=== PATIENT | female | born 2000 | race Caucasian/White ===

== ENCOUNTER 2020-12-31 17:10 | Observation (INO) | payer OTHER ==
[2020-12-31] MEDS ORDERED: BABY ASPIRIN 81 MG CHEW PO ONE (17:38)
[2020-12-31] MEDS ORDERED: TORAdol 30 mg Injection IV ONE (17:38)
[2020-12-31] MEDS ORDERED: DUONEB 0.5-3 MG/3 ml Neb IH ONE ×2 (17:39→17:42)
[2020-12-31 17:42] LABS: Hematocrit 39.9 % (35-47); Hemoglobin 12.8 gm/dl (12.0-16.0); Mean Cell Volume 84.7 fl (78-100); Mean Corpuscular Hemoglobin 27.2 pg (26-32); Mean Corpuscular Hgb Concent. 32.1 g/dl (32-36); Mean Platelet Volume 10.9 fl (7.5-11.0); Platelet Count 585 K/mm3 (150-450); Red Blood Count 4.71 M/mm3 (4.1-5.4); Red Cell Distribution Width 16.4 % (11.5-14.0)
[2020-12-31] MEDS ORDERED: BABY ASPIRIN 81 MG CHEW ONE (17:45)
[2020-12-31] MEDS ORDERED: TORAdol 30 mg Injection ONE (17:45)
[2020-12-31 17:49] LABS: White Blood Count 26.3 K/mm3 (4.0-10.5)
[2020-12-31] MEDS ORDERED: Sodium Chloride 0.9% 1000 ML 1,000 ML IV STA (17:49)
[2020-12-31] MEDS ORDERED: Sodium Chloride 0.9% 1000 ML 1,000 ML ONE (17:50)
[2020-12-31 17:51] LABS: ALBUMIN 4.7 g/dL (3.5-5.0); ALKALINE PHOSPHATASE 59 U/L (38-126); ANION GAP 13.2 MEQ/L (5-15); BLOOD UREA NITROGEN 11 mg/dL (7-17); CHLORIDE 107 mmol/L (98-107); Calcium 10.4 mg/dL (8.4-10.2); Carbon Dioxide 23 mmol/L (22-30); Creatinine 1 0.58 mg/dL (0.52-1.04); EST GLOMERULAR FILTRATION RATE > 60.0 ML/MIN; Glucose 71 mg/dL (74-106); MAGNESIUM 2.1 mg/dL (1.6-2.3); Potassium 4.2 mmol/L (3.5-5.1); SGOT/AST 31 U/L (14-36); SGPT/ALT 23 U/L (0-35); SODIUM 138 mmol/L (137-145); Total Protein 8.2 g/dL (6.3-8.2)
--- NOTE | 2020-12-31 17:53 | ERPHSYRPT ---
- History of Present Illness Time Seen by Provider: 12/31/20 17:15 Source: patient Exam Limitations: no limitations Patient Subjective Stated Complaint: Pt states "It hurts under my right ribs when I breath. It has felt this way since sunday," Triage Nursing Assessment: Pt presented alert and oriented X 3, skin wpd pt ambulates with an upright steady gait, able to speak in clear full sentences pt tachypneic, holding her right side. Physician History: 20 years old female with history of tobacco abuse presented in the ER with 4 days history of right lower chest wall moderate intensity sharp pain with deep breathing, movements and associated increasing shortness of breath. Patient denies any fall trauma, fever or chills but has wet to dry cough. Denies any history of pulmonary embolism. Denies any left-sided pain. Timing/Duration: day(s) (4), gradual onset, worse Activities at Onset: rest Severity of Dyspnea-Max: moderate Severity of Dyspnea-Current: moderate Possible Cause: unknown cause Modifying Factors: Improves With: rest. Worsens With: deep breath, exertion Associated Symptoms: cough, chest pain/discomfort, muscle spasms hands, painful breathing, tightness Allergies/Adverse Reactions: No Known Drug Allergies Allergy (Verified 12/31/20 17:16) Home Medications: No Reportable Medications [No Reported Medications] 12/31/20 [History] Hx Tetanus, Diphtheria Vaccination/Date Given: No Hx Influenza Vaccination/Date Given: No Hx Pneumococcal Vaccination/Date Given: No Immunizations Up to Date: Yes Travel Risk - International Travel Have you traveled outside of the country in past 3 weeks: No - Coronavirus Screening Are you exhibiting any of the following symptoms?: No Close contact with a COVID-19 positive Pt in past 14-21 Days: No - Review of Systems Constitutional: Fatigue, Malaise Eyes: No Symptoms Ears, Nose, & Throat: No Symptoms Respiratory: Cough, Dyspnea, Dyspnea on Exertion ([place]) Cardiac: Chest Pain Abdominal/Gastrointestinal: No Symptoms Genitourinary Symptoms: No Symptoms Musculoskeletal: No Symptoms Skin: No Symptoms Neurological: No Symptoms Psychological: No Symptoms Endocrine: No Symptoms Hematologic/Lymphatic: No Symptoms Immunological/Allergic: No Symptoms - Past Medical History Pertinent Past Medical History: No - Past Surgical History Past Surgical History: No - Social History Smoking Status: Current every day smoker How long have you smoked: years Exposure to second hand smoke: Yes Drug Use: none Patient Lives Alone: No - Female History Hx Last Menstrual Period: 11/29/2020 Hx Now: No (possible) - Nursing Vital Signs Nursing Vital Signs: Initial Vital Signs Temperature 98.0 F 12/31/20 17:11 Pulse Rate 90 12/31/20 17:11 Respiratory Rate 26 H 12/31/20 17:11 Blood Pressure 163/87 12/31/20 17:11 O2 Sat by Pulse Oximetry 100 12/31/20 17:11 Pain Scale Pain Intensity 0 - Physical Exam General Appearance: no apparent distress, alert Eye Exam: PERRL/EOMI, eyes nml inspection Ears, Nose, Throat Exam: hearing grossly normal, normal ENT inspection, normal pharynx Neck Exam: normal inspection, non-tender, supple, full range of motion Respiratory Exam: chest tenderness (Right lower anterior chest wall. No crepitus), wheezing Cardiovascular/Chest Exam: normal heart sounds, regular rate/rhythm Abdominal/Gastrointestinal Exam: soft, No tenderness Extremity Exam: non-tender, normal range of motion Neurologic Exam: alert, oriented x 3, cooperative Skin Exam: normal color SpO2 Interpretation: normal SpO2: 100 O2 Delivery: Room Air - Course EKG Interpreted by Me: RATE ([id number]), Sinus Rhythm, NORMAL AXIS, NORMAL INTERVALS, NORMAL QRS Ordered Tests: Active Orders 24 hr Category Date Time Status Bedrest with BRP/BSC ROUTINE Activity 12/31/20 22:12 Active Code Status Order ROUTINE Care 12/31/20 22:12 Active IV Care Q6H Care 12/31/20 22:[address] in Observation ROUTINE Care 12/31/20 22:12 Active Barney Cochran ROUTINE Care 12/31/20 22:12 Active House Regular Diet Diet 12/31/20 Breakfast Active CHEST WITH CONTRAST [CT] Stat Exams 12/31/20 17:33 Completed BLOOD CULTURE Stat Lab 12/31/20 19:54 Received CBC Stat Lab 12/31/20 20:22 Completed CBC W DIFF AM.LAB Lab 01/01/21 04:00 Ordered CBC W DIFF Stat Lab 12/31/20 17:20 Completed CMP AM.LAB Lab 01/01/21 04:00 Ordered CMP Stat Lab 12/31/20 17:20 Completed CULTURE,URINE Stat Lab 12/31/20 19:05 Received HCG,QUALITATIVE URINE Stat Lab 12/31/20 17:20 Completed Lactic Acid Stat Lab 12/31/20 19:01 Completed MAGNESIUM Stat Lab 12/31/20 17:20 Completed Manual Differential NC Stat Lab 12/31/20 17:20 Completed TROPONIN Q3H Lab 12/31/20 17:41 Completed TROPONIN Q3H Lab 12/31/20 19:54 Completed TROPONIN Q3H Lab 01/01/21 02:45 Ordered TROPONIN Q3H Lab 01/01/21 05:45 Ordered UA W/RFX UR CULTURE Stat Lab 12/31/20 19:05 Completed Respiratory Therapy Assessment DAILY RT 12/31/20 17:57 Completed Transfer Order Routine Transfer 12/31/20 Completed Medication Summary Generic Name Dose Route Start Last Admin Trade Name Freq PRN Reason Stop Dose Admin Acetaminophen 650 mg 12/31/20 22:12 Tylenol 325 Mg PO 01/30/21 22:11 Q4H PRN PRN PAIN AND/OR FEVER Albuterol/Ipratropium 3 ml 01/01/21 07:00 Duoneb 0.5-3 Mg/3 Ml Neb IH 01/31/21 06:59 QIDRT DEVI Famotidine 20 mg 12/31/20 22:12 Pepcid 20 Mg Vial IV 01/30/21 22:11 Q12HT DEVI Levofloxacin/Dextrose 750 mg in 150 mls @ 100 mls/hr 01/01/21 10:00 Levofloxacin 750mg/150ml D5w IV 01/31/21 09:59 Q24H10 DEVI Ketorolac Tromethamine 30 mg 12/31/20 22:12 Toradol 30 Mg Injection IV 01/05/21 22:11 Q6H PRN PRN PAIN Ondansetron HCl 4 mg 12/31/20 22:12 Zofran 4 Mg/2 Ml Vial IV 01/30/21 22:11 Q6H PRN PRN NAUSEA/VOMITING Discontinued Medications Generic Name Dose Route Start Last Admin Trade Name Freq PRN Reason Stop Dose Admin Albuterol/Ipratropium 3 ml 12/31/20 17:39 12/31/20 17:45 Duoneb 0.5-3 Mg/3 Ml Neb IH 12/31/20 17:40 3 ml STAT ONE Administration Albuterol/Ipratropium Confirm 12/31/20 17:42 Duoneb 0.5-3 Mg/3 Ml Neb Administered 12/31/20 17:43 Dose 3 ml IH .STK-MED ONE Aspirin 324 mg 12/31/20 17:38 12/31/20 17:51 Baby Aspirin 81 Mg Chew PO 12/31/20 17:39 324 mg STAT ONE Administration Aspirin Confirm 12/31/20 17:45 Baby Aspirin 81 Mg Chew Administered 12/31/20 17:46 Dose 324 mg .ROUTE .STK-MED ONE Sodium Chloride 1,000 mls @ 999 mls/hr 12/31/20 17:49 12/31/20 18:58 Sodium Chloride 0.9% 1000 Ml IV 12/31/20 18:49 Infused .Q1H1M STA Infusion Sodium Chloride Confirm 12/31/20 17:50 Sodium Chloride 0.9% 1000 Ml Administered 12/31/20 17:51 Dose 1,000 mls @ ud .ROUTE .STK-MED ONE Levofloxacin/Dextrose 750 mg in 150 mls @ 100 mls/hr 12/31/20 20:26 12/31/20 20:48 Levofloxacin 750mg/150ml D5w IV 12/31/20 21:55 100 mls/hr STAT STA 100 mls/hr Administration Levofloxacin/Dextrose Confirm 12/31/20 20:47 Levofloxacin 750mg/150ml D5w Administered 12/31/20 20:48 Dose 750 mg in 150 mls @ ud IV .STK-MED ONE Ketorolac Tromethamine 30 mg 12/31/20 17:38 12/31/20 17:55 Toradol 30 Mg Injection IV 12/31/20 17:39 30 mg STAT ONE Administration Ketorolac Tromethamine Confirm 12/31/20 17:45 Toradol 30 Mg Injection Administered 12/31/20 17:46 Dose 30 mg .ROUTE .STK-MED ONE Lab/Rad Data: Laboratory Result Diagrams 12/31/20 20:22 12/31/20 17:20 Laboratory Results 12/31/20 12/31/20 12/31/20 Range/Units 20:41 20:22 19:54 WBC 25.3 H* (4.0-10.5) K/mm3 RBC 4.25 (4.1-5.4) M/mm3 Hgb 11.6 L (12.0-16.0) gm/dl Hct 36.3 (35-47) % MCV 85.4 (78-100) fl MCH 27.3 (26-32) pg MCHC 32.0 (32-36) g/dl RDW 16.4 H (11.5-14.0) % Plt Count 496 H (150-450) K/mm3 MPV 10.5 (7.5-11.0) fl Segmented Neutrophils (36.0-66.0) % Band Neutrophils (0.0-2.0) % Lymphocytes (Manual) (24-44) % Monocytes (Manual) (0.0-12.0) % Eosinophils (Manual) (0.00-3.0) % Basophils (Manual) (0.0-1.0) % Metamyelocytes % Platelet Estimate (NORMAL) RBC Morphology Sodium (137-145) mmol/L Potassium (3.5-5.1) mmol/L Chloride (98-107) mmol/L Carbon Dioxide (22-30) mmol/L Anion Gap (5-15) MEQ/L BUN (7-17) mg/dL Creatinine (0.52-1.04) mg/dL Estimated GFR ML/MIN Glucose (74-106) mg/dL Lactic Acid (0.4-2.0) Calcium (8.4-10.2) mg/dL Magnesium (1.6-2.3) mg/dL Total Bilirubin (0.2-1.3) mg/dL AST (14-36) U/L ALT (0-35) U/L Alkaline Phosphatase (38-126) U/L Troponin I < 0.012 (0.000-0.034) ng/mL Serum Total Protein (6.3-8.2) g/dL Albumin (3.5-5.0) g/dL Urine Color (YELLOW) Urine Appearance (CLEAR) Urine pH (5-6) Ur Specific Ensign (1.005-1.025) Urine Protein (Negative) Urine Ketones (NEGATIVE) Urine Blood (0-5) Kian/ul Urine Nitrite (NEGATIVE) Urine Bilirubin (NEGATIVE) Urine Urobilinogen (0-1) mg/dL Ur Leukocyte Esterase (NEGATIVE) Urine WBC (Auto) (0-5) /HPF Urine RBC (Auto) (0-2) /HPF U Epithel Cells (Auto) (FEW) /HPF Urine Bacteria (Auto) (NEGATIVE) /HPF Urine Mucus (Auto) (NEGATIVE) /HPF Urine Culture Reflexed (NO) Urine Glucose (NEGATIVE) mg/dL Urine HCG, Qual (Negative) SARS-CoV-2 (PCR) NEGATIVE (NEGATIVE) 12/31/20 12/31/20 12/31/20 Range/Units 19:05 19:01 17:41 WBC (4.0-10.5) K/mm3 RBC (4.1-5.4) M/mm3 Hgb (12.0-16.0) gm/dl Hct (35-47) % MCV (78-100) fl MCH (26-32) pg MCHC (32-36) g/dl RDW (11.5-14.0) % Plt Count (150-450) K/mm3 MPV (7.5-11.0) fl Segmented Neutrophils (36.0-66.0) % Band Neutrophils (0.0-2.0) % Lymphocytes (Manual) (24-44) % Monocytes (Manual) (0.0-12.0) % Eosinophils (Manual) (0.00-3.0) % Basophils (Manual) (0.0-1.0) % Metamyelocytes % Platelet Estimate (NORMAL) RBC Morphology Sodium (137-145) mmol/L Potassium (3.5-5.1) mmol/L Chloride (98-107) mmol/L Carbon Dioxide (22-30) mmol/L Anion Gap (5-15) MEQ/L BUN (7-17) mg/dL Creatinine (0.52-1.04) mg/dL Estimated GFR ML/MIN Glucose (74-106) mg/dL Lactic Acid 1.0 (0.4-2.0) Calcium (8.4-10.2) mg/dL Magnesium (1.6-2.3) mg/dL Total Bilirubin (0.2-1.3) mg/dL AST (14-36) U/L ALT (0-35) U/L Alkaline Phosphatase (38-126) U/L Troponin I < 0.012 (0.000-0.034) ng/mL Serum Total Protein (6.3-8.2) g/dL Albumin (3.5-5.0) g/dL Urine Color YELLOW (YELLOW) Urine Appearance SLIGHTLY CLOUDY (CLEAR) Urine pH 7.0 (5-6) Ur Specific Ensign 1.006 (1.005-1.025) Urine Protein NEGATIVE (Negative) Urine Ketones NEGATIVE (NEGATIVE) Urine Blood SMALL (0-5) Kian/ul Urine Nitrite NEGATIVE (NEGATIVE) Urine Bilirubin NEGATIVE (NEGATIVE) Urine Urobilinogen NEGATIVE (0-1) mg/dL Ur Leukocyte Esterase LARGE (NEGATIVE) Urine WBC (Auto) 26-50 (0-5) /HPF Urine RBC (Auto) 6-10 (0-2) /HPF U Epithel Cells (Auto) MODERATE (FEW) /HPF Urine Bacteria (Auto) FEW (NEGATIVE) /HPF Urine Mucus (Auto) SLIGHT (NEGATIVE) /HPF Urine Culture Reflexed YES (NO) Urine Glucose NEGATIVE (NEGATIVE) mg/dL Urine HCG, Qual (Negative) SARS-CoV-2 (PCR) (NEGATIVE) 12/31/20 12/31/20 12/31/20 Range/Units 17:20 17:20 17:20 WBC 26.3 H* (4.0-10.5) K/mm3 RBC 4.71 (4.1-5.4) M/mm3 Hgb 12.8 (12.0-16.0) gm/dl Hct 39.9 (35-47) % MCV 84.7 (78-100) fl MCH 27.2 (26-32) pg MCHC 32.1 (32-36) g/dl RDW 16.4 H (11.5-14.0) % Plt Count 585 H (150-450) K/mm3 MPV 10.9 (7.5-11.0) fl Segmented Neutrophils 81 H (36.0-66.0) % Band Neutrophils 4 H (0.0-2.0) % Lymphocytes (Manual) 8 L (24-44) % Monocytes (Manual) 1 (0.0-12.0) % Eosinophils (Manual) 2 (0.00-3.0) % Basophils (Manual) 3 H (0.0-1.0) % Metamyelocytes 1 % Platelet Estimate NORMAL (NORMAL) RBC Morphology NORMAL Sodium 138 (137-145) mmol/L Potassium 4.2 (3.5-5.1) mmol/L Chloride 107 (98-107) mmol/L Carbon Dioxide 23 (22-30) mmol/L Anion Gap 13.2 (5-15) MEQ/L BUN 11 (7-17) mg/dL Creatinine 0.58 (0.52-1.04) mg/dL Estimated GFR > 60.0 ML/MIN Glucose 71 L (74-106) mg/dL Lactic Acid (0.4-2.0) Calcium 10.4 H (8.4-10.2) mg/dL Magnesium 2.1 (1.6-2.3) mg/dL Total Bilirubin 0.20 (0.2-1.3) mg/dL AST 31 (14-36) U/L ALT 23 (0-35) U/L Alkaline Phosphatase 59 (38-126) U/L Troponin I (0.000-0.034) ng/mL Serum Total Protein 8.2 (6.3-8.2) g/dL Albumin 4.7 (3.5-5.0) g/dL Urine Color (YELLOW) Urine Appearance (CLEAR) Urine pH (5-6) Ur Specific Ensign (1.005-1.025) Urine Protein (Negative) Urine Ketones (NEGATIVE) Urine Blood (0-5) Kian/ul Urine Nitrite (NEGATIVE) Urine Bilirubin (NEGATIVE) Urine Urobilinogen (0-1) mg/dL Ur Leukocyte Esterase (NEGATIVE) Urine WBC (Auto) (0-5) /HPF Urine RBC (Auto) (0-2) /HPF U Epithel Cells (Auto) (FEW) /HPF Urine Bacteria (Auto) (NEGATIVE) /HPF Urine Mucus (Auto) (NEGATIVE) /HPF Urine Culture Reflexed (NO) Urine Glucose (NEGATIVE) mg/dL Urine HCG, Qual NEGATIVE (Negative) SARS-CoV-2 (PCR) (NEGATIVE) - Progress Progress: improved, re-examined Air Movement: good Progress Note: 12/31/20 21:48 20 years old is evaluated for shortness of breath and right-sided chest pain. She is given breathing treatment along with Toradol for symptomatic relief, on reevaluation feeling better. EKG did not show any acute ischemic changes. Unremarkable troponins. I have obtained CTA chest which is negative for PE or any other acute cardiopulmonary findings. Her work-up showed white count of 26 and UTI. She also has thrombocytosis. No previous comparison available. Do not know the exact cause of her elevated white count. She is given a dose of Levaquin. Discussed with Dr. Cortez and patient is being admitted. She has negative COVID-19. 12/31/20 21:49 Blood Culture(s) Obtained: Yes Antibiotics given: Yes Discussed with : Milo Will see patient in: hospital (observation) Counseled pt/family regarding: lab results, diagnosis, rad results - Departure Departure Disposition: Observation Clinical Impression: Acute UTI Dyspnea Qualifiers: Dyspnea type: unspecified Qualified Code(s): R06.00 - Dyspnea, unspecified Leukocytosis Qualifiers: Leukocytosis type: unspecified Qualified Code(s): D72.829 - Elevated white blood cell count, unspecified Condition: Stable Critical Care Time: No
[2020-12-31 18:10] LABS: BAND 4 % (0.0-2.0); Basophil 3 % (0.0-1.0); Eosinophil 2 % (0.00-3.0); Lymphocytes 8 % (24-44); Metamyelocyte 1 %; Monocyte 1 % (0.0-12.0); Neutrophils 81 % (36.0-66.0); Total Cells Counted 100
[2020-12-31 18:11] LABS: Platelet Estimate NORMAL (NORMAL)
[2020-12-31 19:16] LABS: Appearance SLIGHTLY CLOUDY (CLEAR); Bacteria FEW /HPF (NEGATIVE); Bilirubin NEGATIVE (NEGATIVE); Blood SMALL Ery/ul (0-5); Epithelial Cells MODERATE /HPF (FEW); Glucose NEGATIVE (NEGATIVE); Ketones NEGATIVE (NEGATIVE); Leukocyte Esterase LARGE (NEGATIVE); Mucus SLIGHT /HPF (NEGATIVE); Nitrite NEGATIVE (NEGATIVE); Protein,Urine Dip NEGATIVE (Negative); Specific Gravity 1.006 (1.005-1.025); Urobilinogen NEGATIVE mg/dL (0-1); WBC 26-50 /HPF (0-5)
[2020-12-31 20:24] LABS: Hematocrit 36.3 % (35-47); Hemoglobin 11.6 gm/dl (12.0-16.0); Mean Cell Volume 85.4 fl (78-100); Mean Corpuscular Hemoglobin 27.3 pg (26-32); Mean Platelet Volume 10.5 fl (7.5-11.0); Platelet Count 496 K/mm3 (150-450); Red Blood Count 4.25 M/mm3 (4.1-5.4); Red Cell Distribution Width 16.4 % (11.5-14.0)
[2020-12-31 20:26] LABS: White Blood Count 25.3 K/mm3 (4.0-10.5)
[2020-12-31] MEDS ORDERED: LEVOFLOXACIN 750MG/150ML D5W 750 MG/150 ML BAG IV STA (20:26)
[2020-12-31] MEDS ORDERED: LEVOFLOXACIN 750MG/150ML D5W 750 MG/150 ML BAG IV ONE (20:47)
--- NOTE | 2020-12-31 22:04 | XRAY ---
Indication: Short of breath, cough, and chest pain. Elevated WBC. Multiple contiguous axial images obtained through the chest using 100 cc Isovue 370 contrast and PE protocol. Comparison: None. There is good opacification of the pulmonary arteries to include the lobar and segmental branches. No pulmonary embolus. Heart is not enlarged. Aorta is normal in course and caliber. No pathologic mediastinal/hilar lymphadenopathy lungs are inflated and clear. Bony thorax intact. Limited upper abdomen demonstrates 13.5 cm splenomegaly. Impression: 1. Negative pulmonary embolus. No acute cardiopulmonary abnormalities. 2. Incidental splenomegaly. Comment: Preliminary interpretation was made by [facility]. No critical discrepancy.
[2020-12-31] MEDS ORDERED: TORAdol 30 mg Injection IV PRN (22:12)
[2020-12-31] MEDS ORDERED: TYLENOL 325 MG PO PRN (22:12)
[2020-12-31] MEDS ORDERED: Zofran 4 MG/2 ML VIAL IV PRN (22:12)
[2021-01-01] MEDS: Pepcid 20 MG VIAL IV SCH ×2 (00:19→10:23)
[2021-01-01 05:59] LABS: Hematocrit 36.9 % (35-47); Hemoglobin 11.5 gm/dl (12.0-16.0); Mean Cell Volume 86.2 fl (78-100); Mean Corpuscular Hemoglobin 26.9 pg (26-32); Mean Corpuscular Hgb Concent. 31.2 g/dl (32-36); Mean Platelet Volume 11.2 fl (7.5-11.0); Platelet Count 478 K/mm3 (150-450); Red Blood Count 4.28 M/mm3 (4.1-5.4); Red Cell Distribution Width 16.6 % (11.5-14.0); White Blood Count 19.6 K/mm3 (4.0-10.5)
[2021-01-01 06:15] LABS: ALBUMIN 3.6 g/dL (3.5-5.0); ALKALINE PHOSPHATASE 57 U/L (38-126); ANION GAP 11.3 MEQ/L (5-15); BLOOD UREA NITROGEN 12 mg/dL (7-17); CHLORIDE 108 mmol/L (98-107); Calcium 9.5 mg/dL (8.4-10.2); Carbon Dioxide 23 mmol/L (22-30); Creatinine 1 0.78 mg/dL (0.52-1.04); EST GLOMERULAR FILTRATION RATE > 60.0 ML/MIN; Glucose 91 mg/dL (74-106); Potassium 4.5 mmol/L (3.5-5.1); SGOT/AST 17 U/L (14-36); SGPT/ALT 16 U/L (0-35); SODIUM 138 mmol/L (137-145); Total Protein 6.5 g/dL (6.3-8.2)
[2021-01-01] MEDS: DUONEB 0.5-3 MG/3 ml Neb IH SCH ×3 (06:59→15:09)
[2021-01-01 08:19] LABS: BAND 3 % (0.0-2.0); Basophil 2 % (0.0-1.0); Eosinophil 1 % (0.00-3.0); Lymphocytes 12 % (24-44); Monocyte 3 % (0.0-12.0); Neutrophils 79 % (36.0-66.0); Platelet Estimate INCREASED (NORMAL); Total Cells Counted 100
[2021-01-01 08:20] LABS: Toxic Granulation 1+
--- NOTE | 2021-01-01 08:36 | PCM.SSS ---
History of Present Illness - Chief Complaint Chief Complaint: uti History of Present Illness: is a 20 year old female admitted through ER with R chest wall pain and UTI. She started having pain in her R ribs 4d ago, under the R breast, worse with breathing and movements. Did c/o some cough. Was better with nebs and toradol in ER; toradol has continued to help the pain. on admission, pain was 8/10, and currently is 2/10. Pt found to have 26-50 WBC in her urine; was started on IV levaquin. Her initial WBC count was 25.3, and this morning it's downto 19.6.. She is tolerating po. Pt has also had L jaw pain; has a tooth that is causing problems. Started an antibiotic for it from [facility], but only took the abx until she started feeling better then stopped it. - Review of Systems Ears, Nose, & Throat: Other (tooth pain/L jaw pain) Respiratory: Cough, Short Of Breath Cardiac: Chest Pain Genitourinary Symptoms: Other (irre) Musculoskeletal: Fall (irreg periods, chronic) All Other Systems: Reviewed and Negative Medications & Allergies Home Medications: Home Medication List Albuterol Sulfate [Albuterol Sulfate Hfa] 8.5 gm IH QID PRN #1 [email or web address] 01/01/21 [Rx] Levofloxacin [Levaquin] 500 mg PO DAILY #6 tablet 01/01/21 [Rx] Allergies/Adverse Reactions: Allergies Allergy/AdvReac Type Severity Reaction Status Date / Time No Known Drug Allergies Allergy Verified 12/31/20 17:16 - Past Medical History Past Medical History: No - Female History Hx Last Menstrual Period: 11/29/2020 Are you now?: No (possible) - Past Surgical History Past Surgical History: No - Social History Smoking Status: Current every day smoker How long have you smoked: years Exposure to second hand smoke: Yes Alcohol: None Drug Use: none - Physical Exam Vital Signs: Vital Signs - 24 hr Temp Pulse Resp BP Pulse Ox 01/01/21 07:34 98.5 F 89 18 107/56 100 01/01/21 07:01 79 20 95 01/01/21 04:00 98.2 F 74 17 113/60 98 01/01/21 00:10 100 12/31/20 23:15 72 16 98 12/31/20 22:39 97.5 F 87 20 117/66 99 12/31/20 22:00 83 22 120/69 99 12/31/20 21:27 83 26 H 128/89 100 12/31/20 20:23 82 24 116/76 98 12/31/20 19:00 78 22 120/68 100 12/31/20 18:25 61 18 132/78 100 12/31/20 17:58 89 16 98 12/31/20 17:11 98.0 F 90 26 H 163/87 100 General Appearance: no apparent distress, alert Neurologic Exam: oriented x 3, cooperative Eye Exam: eyes nml inspection Ears, Nose, Throat Exam: pharynx normal, moist mucous membranes, other (L jaw without obvious caries; the outer jaw has an indistinct enlarged area midway along its length that is somewhat ttp; no erythema/induration/fluctuance) Neck Exam: normal inspection, non-tender, No lymphadenopathy Respiratory Exam: normal breath sounds, lungs clear, other (R inferior ribs are ttp; no crepitus or step offs), No crackles/rales, No rhonchi, No wheezing Cardiovascular Exam: regular rate/rhythm, normal heart sounds, No murmur Gastrointestinal/Abdomen Exam: soft, normal bowel sounds, No tenderness, No distention, No mass, No guarding, No rebound Back Exam: normal inspection, No CVA tenderness, No rash Extremity Exam: normal inspection, No pedal edema, No swelling Skin Exam: normal color, warm, dry, No rash Results - Labs Lab/Micro Results: Lab Results-Last 24 Hours 12/31/20 12/31/20 12/31/20 Range/Units 17:20 17:20 17:20 WBC 26.3 H* (4.0-10.5) K/mm3 RBC 4.71 (4.1-5.4) M/mm3 Hgb 12.8 (12.0-16.0) gm/dl Hct 39.9 (35-47) % MCV 84.7 (78-100) fl MCH 27.2 (26-32) pg MCHC 32.1 (32-36) g/dl RDW 16.4 H (11.5-14.0) % Plt Count 585 H (150-450) K/mm3 MPV 10.9 (7.5-11.0) fl Segmented Neutrophils 81 H (36.0-66.0) % Band Neutrophils 4 H (0.0-2.0) % Lymphocytes (Manual) 8 L (24-44) % Monocytes (Manual) 1 (0.0-12.0) % Eosinophils (Manual) 2 (0.00-3.0) % Basophils (Manual) 3 H (0.0-1.0) % Metamyelocytes 1 % Toxic Granulation Platelet Estimate NORMAL (NORMAL) RBC Morphology NORMAL Sodium 138 (137-145) mmol/L Potassium 4.2 (3.5-5.1) mmol/L Chloride 107 (98-107) mmol/L Carbon Dioxide 23 (22-30) mmol/L Anion Gap 13.2 (5-15) MEQ/L BUN 11 (7-17) mg/dL Creatinine 0.58 (0.52-1.04) mg/dL Estimated GFR > 60.0 ML/MIN Glucose 71 L (74-106) mg/dL Lactic Acid (0.4-2.0) Calcium 10.4 H (8.4-10.2) mg/dL Magnesium 2.1 (1.6-2.3) mg/dL Total Bilirubin 0.20 (0.2-1.3) mg/dL AST 31 (14-36) U/L ALT 23 (0-35) U/L Alkaline Phosphatase 59 (38-126) U/L Troponin I (0.000-0.034) ng/mL Serum Total Protein 8.2 (6.3-8.2) g/dL Albumin 4.7 (3.5-5.0) g/dL Urine Color (YELLOW) Urine Appearance (CLEAR) Urine pH (5-6) Ur Specific [place] (1.005-1.025) Urine Protein (Negative) Urine Ketones (NEGATIVE) Urine Blood (0-5) Kian/ul Urine Nitrite (NEGATIVE) Urine Bilirubin (NEGATIVE) Urine Urobilinogen (0-1) mg/dL Ur Leukocyte Esterase (NEGATIVE) Urine WBC (Auto) (0-5) /HPF Urine RBC (Auto) (0-2) /HPF U Epithel Cells (Auto) (FEW) /HPF Urine Bacteria (Auto) (NEGATIVE) /HPF Urine Mucus (Auto) (NEGATIVE) /HPF Urine Culture Reflexed (NO) Urine Glucose (NEGATIVE) mg/dL Urine HCG, Qual NEGATIVE (Negative) SARS-CoV-2 (PCR) (NEGATIVE) 12/31/20 12/31/20 12/31/20 Range/Units 17:41 19:01 19:05 WBC (4.0-10.5) K/mm3 RBC (4.1-5.4) M/mm3 Hgb (12.0-16.0) gm/dl Hct (35-47) % MCV (78-100) fl MCH (26-32) pg MCHC (32-36) g/dl RDW (11.5-14.0) % Plt Count (150-450) K/mm3 MPV (7.5-11.0) fl Segmented Neutrophils (36.0-66.0) % Band Neutrophils (0.0-2.0) % Lymphocytes (Manual) (24-44) % Monocytes (Manual) (0.0-12.0) % Eosinophils (Manual) (0.00-3.0) % Basophils (Manual) (0.0-1.0) % Metamyelocytes % Toxic Granulation Platelet Estimate (NORMAL) RBC Morphology Sodium (137-145) mmol/L Potassium (3.5-5.1) mmol/L Chloride (98-107) mmol/L Carbon Dioxide (22-30) mmol/L Anion Gap (5-15) MEQ/L BUN (7-17) mg/dL Creatinine (0.52-1.04) mg/dL Estimated GFR ML/MIN Glucose (74-106) mg/dL Lactic Acid 1.0 (0.4-2.0) Calcium (8.4-10.2) mg/dL Magnesium (1.6-2.3) mg/dL Total Bilirubin (0.2-1.3) mg/dL AST (14-36) U/L ALT (0-35) U/L Alkaline Phosphatase (38-126) U/L Troponin I < 0.012 (0.000-0.034) ng/mL Serum Total Protein (6.3-8.2) g/dL Albumin (3.5-5.0) g/dL Urine Color YELLOW (YELLOW) Urine Appearance SLIGHTLY CLOUDY (CLEAR) Urine pH 7.0 (5-6) Ur Specific [place] 1.006 (1.005-1.025) Urine Protein NEGATIVE (Negative) Urine Ketones NEGATIVE (NEGATIVE) Urine Blood SMALL (0-5) Kian/ul Urine Nitrite NEGATIVE (NEGATIVE) Urine Bilirubin NEGATIVE (NEGATIVE) Urine Urobilinogen NEGATIVE (0-1) mg/dL Ur Leukocyte Esterase LARGE (NEGATIVE) Urine WBC (Auto) 26-50 (0-5) /HPF Urine RBC (Auto) 6-10 (0-2) /HPF U Epithel Cells (Auto) MODERATE (FEW) /HPF Urine Bacteria (Auto) FEW (NEGATIVE) /HPF Urine Mucus (Auto) SLIGHT (NEGATIVE) /HPF Urine Culture Reflexed YES (NO) Urine Glucose NEGATIVE (NEGATIVE) mg/dL Urine HCG, Qual (Negative) SARS-CoV-2 (PCR) (NEGATIVE) 12/31/20 12/31/20 12/31/20 Range/Units 19:54 20:22 20:41 WBC 25.3 H* (4.0-10.5) K/mm3 RBC 4.25 (4.1-5.4) M/mm3 Hgb 11.6 L (12.0-16.0) gm/dl Hct 36.3 (35-47) % MCV 85.4 (78-100) fl MCH 27.3 (26-32) pg MCHC 32.0 (32-36) g/dl RDW 16.4 H (11.5-14.0) % Plt Count 496 H (150-450) K/mm3 MPV 10.5 (7.5-11.0) fl Segmented Neutrophils (36.0-66.0) % Band Neutrophils (0.0-2.0) % Lymphocytes (Manual) (24-44) % Monocytes (Manual) (0.0-12.0) % Eosinophils (Manual) (0.00-3.0) % Basophils (Manual) (0.0-1.0) % Metamyelocytes % Toxic Granulation Platelet Estimate (NORMAL) RBC Morphology Sodium (137-145) mmol/L Potassium (3.5-5.1) mmol/L Chloride (98-107) mmol/L Carbon Dioxide (22-30) mmol/L Anion Gap (5-15) MEQ/L BUN (7-17) mg/dL Creatinine (0.52-1.04) mg/dL Estimated GFR ML/MIN Glucose (74-106) mg/dL Lactic Acid (0.4-2.0) Calcium (8.4-10.2) mg/dL Magnesium (1.6-2.3) mg/dL Total Bilirubin (0.2-1.3) mg/dL AST (14-36) U/L ALT (0-35) U/L Alkaline Phosphatase (38-126) U/L Troponin I < 0.012 (0.000-0.034) ng/mL Serum Total Protein (6.3-8.2) g/dL Albumin (3.5-5.0) g/dL Urine Color (YELLOW) Urine Appearance (CLEAR) Urine pH (5-6) Ur Specific [place] (1.005-1.025) Urine Protein (Negative) Urine Ketones (NEGATIVE) Urine Blood (0-5) Kian/ul Urine Nitrite (NEGATIVE) Urine Bilirubin (NEGATIVE) Urine Urobilinogen (0-1) mg/dL Ur Leukocyte Esterase (NEGATIVE) Urine WBC (Auto) (0-5) /HPF Urine RBC (Auto) (0-2) /HPF U Epithel Cells (Auto) (FEW) /HPF Urine Bacteria (Auto) (NEGATIVE) /HPF Urine Mucus (Auto) (NEGATIVE) /HPF Urine Culture Reflexed (NO) Urine Glucose (NEGATIVE) mg/dL Urine HCG, Qual (Negative) SARS-CoV-2 (PCR) NEGATIVE (NEGATIVE) 01/01/21 01/01/21 Range/Units 05:15 05:15 WBC 19.6 H (4.0-10.5) K/mm3 RBC 4.28 (4.1-5.4) M/mm3 Hgb 11.5 L (12.0-16.0) gm/dl Hct 36.9 (35-47) % MCV 86.2 (78-100) fl MCH 26.9 (26-32) pg MCHC 31.2 L (32-36) g/dl RDW 16.6 H (11.5-14.0) % Plt Count 478 H (150-450) K/mm3 MPV 11.2 H (7.5-11.0) fl Segmented Neutrophils 79 H (36.0-66.0) % Band Neutrophils 3 H (0.0-2.0) % Lymphocytes (Manual) 12 L (24-44) % Monocytes (Manual) 3 (0.0-12.0) % Eosinophils (Manual) 1 (0.00-3.0) % Basophils (Manual) 2 H (0.0-1.0) % Metamyelocytes % Toxic Granulation 1+ Platelet Estimate INCREASED (NORMAL) RBC Morphology NORMAL Sodium 138 (137-145) mmol/L Potassium 4.5 (3.5-5.1) mmol/L Chloride 108 H (98-107) mmol/L Carbon Dioxide 23 (22-30) mmol/L Anion Gap 11.3 (5-15) MEQ/L BUN 12 (7-17) mg/dL Creatinine 0.78 (0.52-1.04) mg/dL Estimated GFR > 60.0 ML/MIN Glucose 91 (74-106) mg/dL Lactic Acid (0.4-2.0) Calcium 9.5 (8.4-10.2) mg/dL Magnesium (1.6-2.3) mg/dL Total Bilirubin 0.10 L (0.2-1.3) mg/dL AST 17 (14-36) U/L ALT 16 (0-35) U/L Alkaline Phosphatase 57 (38-126) U/L Troponin I (0.000-0.034) ng/mL Serum Total Protein 6.5 (6.3-8.2) g/dL Albumin 3.6 (3.5-5.0) g/dL Urine Color (YELLOW) Urine Appearance (CLEAR) Urine pH (5-6) Ur Specific [place] (1.005-1.025) Urine Protein (Negative) Urine Ketones (NEGATIVE) Urine Blood (0-5) Kian/ul Urine Nitrite (NEGATIVE) Urine Bilirubin (NEGATIVE) Urine Urobilinogen (0-1) mg/dL Ur Leukocyte Esterase (NEGATIVE) Urine WBC (Auto) (0-5) /HPF Urine RBC (Auto) (0-2) /HPF U Epithel Cells (Auto) (FEW) /HPF Urine Bacteria (Auto) (NEGATIVE) /HPF Urine Mucus (Auto) (NEGATIVE) /HPF Urine Culture Reflexed (NO) Urine Glucose (NEGATIVE) mg/dL Urine HCG, Qual (Negative) SARS-CoV-2 (PCR) (NEGATIVE) - Radiology Impressions Radiology Exams & Impressions: Radiology Procedures Category Date Time Status CHEST WITH CONTRAST [CT] Stat Exams 12/31/20 17:33 Completed - Other Procedures and Tests Respiratory Therapy 12/31/20 23:31 Respiratory Therapy Assessment DAILY Assessment/Plan (1) Acute UTI Current Visit: Yes Status: Acute Assessment & Plan: On IV levaquin. Urine culture is pending. Code(s): N39.0 - URINARY TRACT INFECTION, SITE NOT SPECIFIED (2) Right-sided chest wall pain Current Visit: Yes Status: Acute Assessment & Plan: Unsure etiology but it certainly seems inflammatory. Better with toradol. If feeling much better this evening, could discharge to home. Otherwise, would stay here another day on IV antibiotic and toradol. Code(s): R07.89 - OTHER CHEST PAIN (3) Leukocytosis Current Visit: Yes Status: Acute Qualifiers: Leukocytosis type: unspecified Qualified Code(s): D72.829 - Elevated white blood cell count, unspecified Assessment & Plan: improved Code(s): D72.829 - ELEVATED WHITE BLOOD CELL COUNT, UNSPECIFIED Hospital Summary - Hospital Course Hospital Course: 20 yo female admitted through ER with UTI and chest wall pain. CT neg for PE or PNA (did show incidental splenomegaly). Covid neg. Treated with IV levaquin. If feeling better this evening, may opt to d/c home on po levaquin. Will need f/u wtih PCP in 1 wk. Return to hospital for worsening CP/SOB or other worrisome sx. - Vitals & Intake/Output Vital Signs: Vital Signs Temperature 98.5 F 01/01/21 07:34 Pulse Rate 89 01/01/21 07:34 Respiratory Rate 18 01/01/21 07:34 Blood Pressure 107/56 01/01/21 07:34 O2 Sat by Pulse Oximetry 100 01/01/21 07:34 Intake & Output: Intake & Output 12/29/20 12/30/20 12/31/20 01/01/21 11:59 11:59 11:59 11:59 Weight 97 kg - Lab Result Diagrams: 01/01/21 05:15 01/01/21 05:15 Lab Results-Last 24 Hrs: Lab Results-Last 24 Hours 12/31/20 12/31/20 12/31/20 Range/Units 17:20 17:20 17:20 WBC 26.3 H* (4.0-10.5) K/mm3 RBC 4.71 (4.1-5.4) M/mm3 Hgb 12.8 (12.0-16.0) gm/dl Hct 39.9 (35-47) % MCV 84.7 (78-100) fl MCH 27.2 (26-32) pg MCHC 32.1 (32-36) g/dl RDW 16.4 H (11.5-14.0) % Plt Count 585 H (150-450) K/mm3 MPV 10.9 (7.5-11.0) fl Segmented Neutrophils 81 H (36.0-66.0) % Band Neutrophils 4 H (0.0-2.0) % Lymphocytes (Manual) 8 L (24-44) % Monocytes (Manual) 1 (0.0-12.0) % Eosinophils (Manual) 2 (0.00-3.0) % Basophils (Manual) 3 H (0.0-1.0) % Metamyelocytes 1 % Toxic Granulation Platelet Estimate NORMAL (NORMAL) RBC Morphology NORMAL Sodium 138 (137-145) mmol/L Potassium 4.2 (3.5-5.1) mmol/L Chloride 107 (98-107) mmol/L Carbon Dioxide 23 (22-30) mmol/L Anion Gap 13.2 (5-15) MEQ/L BUN 11 (7-17) mg/dL Creatinine 0.58 (0.52-1.04) mg/dL Estimated GFR > 60.0 ML/MIN Glucose 71 L (74-106) mg/dL Lactic Acid (0.4-2.0) Calcium 10.4 H (8.4-10.2) mg/dL Magnesium 2.1 (1.6-2.3) mg/dL Total Bilirubin 0.20 (0.2-1.3) mg/dL AST 31 (14-36) U/L ALT 23 (0-35) U/L Alkaline Phosphatase 59 (38-126) U/L Troponin I (0.000-0.034) ng/mL Serum Total Protein 8.2 (6.3-8.2) g/dL Albumin 4.7 (3.5-5.0) g/dL Urine Color (YELLOW) Urine Appearance (CLEAR) Urine pH (5-6) Ur Specific [place] (1.005-1.025) Urine Protein (Negative) Urine Ketones (NEGATIVE) Urine Blood (0-5) Kian/ul Urine Nitrite (NEGATIVE) Urine Bilirubin (NEGATIVE) Urine Urobilinogen (0-1) mg/dL Ur Leukocyte Esterase (NEGATIVE) Urine WBC (Auto) (0-5) /HPF Urine RBC (Auto) (0-2) /HPF U Epithel Cells (Auto) (FEW) /HPF Urine Bacteria (Auto) (NEGATIVE) /HPF Urine Mucus (Auto) (NEGATIVE) /HPF Urine Culture Reflexed (NO) Urine Glucose (NEGATIVE) mg/dL Urine HCG, Qual NEGATIVE (Negative) SARS-CoV-2 (PCR) (NEGATIVE) 12/31/20 12/31/20 12/31/20 Range/Units 17:41 19:01 19:05 WBC (4.0-10.5) K/mm3 RBC (4.1-5.4) M/mm3 Hgb (12.0-16.0) gm/dl Hct (35-47) % MCV (78-100) fl MCH (26-32) pg MCHC (32-36) g/dl RDW (11.5-14.0) % Plt Count (150-450) K/mm3 MPV (7.5-11.0) fl Segmented Neutrophils (36.0-66.0) % Band Neutrophils (0.0-2.0) % Lymphocytes (Manual) (24-44) % Monocytes (Manual) (0.0-12.0) % Eosinophils (Manual) (0.00-3.0) % Basophils (Manual) (0.0-1.0) % Metamyelocytes % Toxic Granulation Platelet Estimate (NORMAL) RBC Morphology Sodium (137-145) mmol/L Potassium (3.5-5.1) mmol/L Chloride (98-107) mmol/L Carbon Dioxide (22-30) mmol/L Anion Gap (5-15) MEQ/L BUN (7-17) mg/dL Creatinine (0.52-1.04) mg/dL Estimated GFR ML/MIN Glucose (74-106) mg/dL Lactic Acid 1.0 (0.4-2.0) Calcium (8.4-10.2) mg/dL Magnesium (1.6-2.3) mg/dL Total Bilirubin (0.2-1.3) mg/dL AST (14-36) U/L ALT (0-35) U/L Alkaline Phosphatase (38-126) U/L Troponin I < 0.012 (0.000-0.034) ng/mL Serum Total Protein (6.3-8.2) g/dL Albumin (3.5-5.0) g/dL Urine Color YELLOW (YELLOW) Urine Appearance SLIGHTLY CLOUDY (CLEAR) Urine pH 7.0 (5-6) Ur Specific [place] 1.006 (1.005-1.025) Urine Protein NEGATIVE (Negative) Urine Ketones NEGATIVE (NEGATIVE) Urine Blood SMALL (0-5) Kian/ul Urine Nitrite NEGATIVE (NEGATIVE) Urine Bilirubin NEGATIVE (NEGATIVE) Urine Urobilinogen NEGATIVE (0-1) mg/dL Ur Leukocyte Esterase LARGE (NEGATIVE) Urine WBC (Auto) 26-50 (0-5) /HPF Urine RBC (Auto) 6-10 (0-2) /HPF U Epithel Cells (Auto) MODERATE (FEW) /HPF Urine Bacteria (Auto) FEW (NEGATIVE) /HPF Urine Mucus (Auto) SLIGHT (NEGATIVE) /HPF Urine Culture Reflexed YES (NO) Urine Glucose NEGATIVE (NEGATIVE) mg/dL Urine HCG, Qual (Negative) SARS-CoV-2 (PCR) (NEGATIVE) 12/31/20 12/31/20 12/31/20 Range/Units 19:54 20:22 20:41 WBC 25.3 H* (4.0-10.5) K/mm3 RBC 4.25 (4.1-5.4) M/mm3 Hgb 11.6 L (12.0-16.0) gm/dl Hct 36.3 (35-47) % MCV 85.4 (78-100) fl MCH 27.3 (26-32) pg MCHC 32.0 (32-36) g/dl RDW 16.4 H (11.5-14.0) % Plt Count 496 H (150-450) K/mm3 MPV 10.5 (7.5-11.0) fl Segmented Neutrophils (36.0-66.0) % Band Neutrophils (0.0-2.0) % Lymphocytes (Manual) (24-44) % Monocytes (Manual) (0.0-12.0) % Eosinophils (Manual) (0.00-3.0) % Basophils (Manual) (0.0-1.0) % Metamyelocytes % Toxic Granulation Platelet Estimate (NORMAL) RBC Morphology Sodium (137-145) mmol/L Potassium (3.5-5.1) mmol/L Chloride (98-107) mmol/L Carbon Dioxide (22-30) mmol/L Anion Gap (5-15) MEQ/L BUN (7-17) mg/dL Creatinine (0.52-1.04) mg/dL Estimated GFR ML/MIN Glucose (74-106) mg/dL Lactic Acid (0.4-2.0) Calcium (8.4-10.2) mg/dL Magnesium (1.6-2.3) mg/dL Total Bilirubin (0.2-1.3) mg/dL AST (14-36) U/L ALT (0-35) U/L Alkaline Phosphatase (38-126) U/L Troponin I < 0.012 (0.000-0.034) ng/mL Serum Total Protein (6.3-8.2) g/dL Albumin (3.5-5.0) g/dL Urine Color (YELLOW) Urine Appearance (CLEAR) Urine pH (5-6) Ur Specific [place] (1.005-1.025) Urine Protein (Negative) Urine Ketones (NEGATIVE) Urine Blood (0-5) Kian/ul Urine Nitrite (NEGATIVE) Urine Bilirubin (NEGATIVE) Urine Urobilinogen (0-1) mg/dL Ur Leukocyte Esterase (NEGATIVE) Urine WBC (Auto) (0-5) /HPF Urine RBC (Auto) (0-2) /HPF U Epithel Cells (Auto) (FEW) /HPF Urine Bacteria (Auto) (NEGATIVE) /HPF Urine Mucus (Auto) (NEGATIVE) /HPF Urine Culture Reflexed (NO) Urine Glucose (NEGATIVE) mg/dL Urine HCG, Qual (Negative) SARS-CoV-2 (PCR) NEGATIVE (NEGATIVE) 01/01/21 01/01/21 Range/Units 05:15 05:15 WBC 19.6 H (4.0-10.5) K/mm3 RBC 4.28 (4.1-5.4) M/mm3 Hgb 11.5 L (12.0-16.0) gm/dl Hct 36.9 (35-47) % MCV 86.2 (78-100) fl MCH 26.9 (26-32) pg MCHC 31.2 L (32-36) g/dl RDW 16.6 H (11.5-14.0) % Plt Count 478 H (150-450) K/mm3 MPV 11.2 H (7.5-11.0) fl Segmented Neutrophils 79 H (36.0-66.0) % Band Neutrophils 3 H (0.0-2.0) % Lymphocytes (Manual) 12 L (24-44) % Monocytes (Manual) 3 (0.0-12.0) % Eosinophils (Manual) 1 (0.00-3.0) % Basophils (Manual) 2 H (0.0-1.0) % Metamyelocytes % Toxic Granulation 1+ Platelet Estimate INCREASED (NORMAL) RBC Morphology NORMAL Sodium 138 (137-145) mmol/L Potassium 4.5 (3.5-5.1) mmol/L Chloride 108 H (98-107) mmol/L Carbon Dioxide 23 (22-30) mmol/L Anion Gap 11.3 (5-15) MEQ/L BUN 12 (7-17) mg/dL Creatinine 0.78 (0.52-1.04) mg/dL Estimated GFR > 60.0 ML/MIN Glucose 91 (74-106) mg/dL Lactic Acid (0.4-2.0) Calcium 9.5 (8.4-10.2) mg/dL Magnesium (1.6-2.3) mg/dL Total Bilirubin 0.10 L (0.2-1.3) mg/dL AST 17 (14-36) U/L ALT 16 (0-35) U/L Alkaline Phosphatase 57 (38-126) U/L Troponin I (0.000-0.034) ng/mL Serum Total Protein 6.5 (6.3-8.2) g/dL Albumin 3.6 (3.5-5.0) g/dL Urine Color (YELLOW) Urine Appearance (CLEAR) Urine pH (5-6) Ur Specific [place] (1.005-1.025) Urine Protein (Negative) Urine Ketones (NEGATIVE) Urine Blood (0-5) Kian/ul Urine Nitrite (NEGATIVE) Urine Bilirubin (NEGATIVE) Urine Urobilinogen (0-1) mg/dL Ur Leukocyte Esterase (NEGATIVE) Urine WBC (Auto) (0-5) /HPF Urine RBC (Auto) (0-2) /HPF U Epithel Cells (Auto) (FEW) /HPF Urine Bacteria (Auto) (NEGATIVE) /HPF Urine Mucus (Auto) (NEGATIVE) /HPF Urine Culture Reflexed (NO) Urine Glucose (NEGATIVE) mg/dL Urine HCG, Qual (Negative) SARS-CoV-2 (PCR) (NEGATIVE) - Radiology Exams Ordered Rad Exams-Entire Visit: Radiology Procedures Category Date Time Status CHEST WITH CONTRAST [CT] Stat Exams 12/31/20 17:33 Completed - Procedures and Test Procedures and Tests throughout Hospitalization: Therapy Orders & Screens 12/31/20 17:57 Respiratory Therapy Assessment DAILY Comment: 12/31/20 22:59 EKG STAT Comment: Diagnosis: uti Smoking Cessation Education ONCE Comment: Diagnosis: uti Smoking Status: Heavy tobacco smoker How long have you smoked: 4 Have you smoked in the past 12 months: Yes Approximately how many cigarettes per day: 10 Do you dip or chew tobacco: No 12/31/20 23:31 Respiratory Therapy Assessment DAILY Comment: Diagnosis: uti - Discharge Disposition: Home, Self-Care Condition: Good Prescriptions: New Albuterol Sulfate [Albuterol Sulfate Hfa] 8.5 gm IH QID PRN #1 [email or web address] PRN Reason: Chest Pain Levofloxacin [Levaquin] 500 mg PO DAILY #6 tablet Follow up with: DOCTOR,NO FAMILY [Primary Care Provider] -
[2021-01-01 16:00] VITALS: BP 106/56; PULSE 88; O2SAT 99
[2021-01-01] MEDS ORDERED: LEVOFLOXACIN 750MG/150ML D5W 750 MG/150 ML BAG IV ONE (17:00)
[2021-01-01] MEDS ORDERED: LEVOFLOXACIN 750MG/150ML D5W 750 MG/150 ML BAG IV SCH (22:00)
== END 2021-01-01 18:50 | disposition home or self-care (01) ==
LOC: ED 17:10 → MED SURG 21:47
PROVIDERS: ADMIT Family Medicine; ATTEND Family Medicine
DX: N39.0 Urinary tract infection, site not specified (principal); R07.89 Other chest pain; R68.84 Jaw pain; K08.89 Other specified disorders of teeth and supporting structures; Z79.899 Other long term (current) drug therapy; D72.829 Elevated white blood cell count, unspecified; R16.1 Splenomegaly, not elsewhere classified
CPT/HCPCS: 36415; 71260; 80053; 81001; 83605; 83735; 84484; 84703; 85025; 85027; 87040; 87086; 93005; 93268; 94640; 94760; 96365; 96374; 99284; G0378; U0003; J1885; J1956; A9270-GY